=== PATIENT | male | born 1970 | race Caucasian/White ===

== ENCOUNTER 2016-07-07 05:23 | Emergency (ER) | payer MEDICAID ==
[~2016-07-07] VITALS: Ht 170.2 cm; Wt 82.2 kg
[~2016-07-07 05:23] MED LIST: ALBU18HF INH; LEVO750T26 PO
[2016-07-07] MEDS ORDERED: KETOROLAC 30 MG/1 ML IM ONE (06:00)
[2016-07-07] MEDS ORDERED: KETOROLAC 30 MG/1 ML ONE (06:05)
[2016-07-07 06:23] VITALS: BP 137/95
== END 2016-07-07 06:24 | disposition home or self-care (01) ==
LOC: ED 06:17
DX: M51.26 Other intervertebral disc displacement, lumbar region (principal); M51.16 Intervertebral disc disorders with radiculopathy, lumbar region; M54.31 Sciatica, right side; I10 Essential (primary) hypertension; J45.909 Unspecified asthma, uncomplicated
CPT/HCPCS: 96372; 99283; J1885

== ENCOUNTER 2016-12-01 11:21 | Emergency (ER) | payer MEDICAID ==
[2016-12-01 11:23] VITALS: BP 128/90
[2016-12-01] MEDS ORDERED: FLUORESCEIN OPHTHALMIC 1 MG STRIP ONE (12:05)
[2016-12-01] MEDS ORDERED: PROPARACAINE OPHTH 0.5%, 15ML ONE (12:05)
[2016-12-01] MEDS ORDERED: PROPARACAINE OPHTH 0.5%, 15ML EACHEYE ONE (12:30)
[2016-12-01] MEDS ORDERED: FLUORESCEIN OPHTHALMIC 1 MG STRIP EACHEYE ONE (12:30)
[2016-12-01] MEDS ORDERED: PLEASE ENTER WEIGHT MC SCH (12:30)
== END 2016-12-01 13:11 | disposition home or self-care (01) ==
LOC: ED 13:08
DX: B30.9 Viral conjunctivitis, unspecified (principal); J45.909 Unspecified asthma, uncomplicated; I10 Essential (primary) hypertension; F17.200 Nicotine dependence, unspecified, uncomplicated
CPT/HCPCS: 99283

== ENCOUNTER 2017-03-14 12:17 | Emergency (ER) | payer MEDICAID ==
[~2017-03-14] VITALS: Ht 167.6 cm; Wt 84.0 kg
[2017-03-14] MEDS ORDERED: ALBUTEROL/IPRATROPIUM 2.5MG/0.5MG, 3 ML ONE ×2 (12:54→12:56)
[2017-03-14] MEDS ORDERED: ALBUTEROL SULFATE 2.5 MG/3 ML ONE (12:56)
[2017-03-14] MEDS ORDERED: SODIUM CHLORIDE FLUSH 10ML SYR IVF ONE (13:00)
[2017-03-14] MEDS ORDERED: methylPREDNISolone SOD SUCC 125 MG/2 ML IVP ONE (13:00)
[2017-03-14] MEDS ORDERED: ALBUTEROL SULFATE 2.5 MG/3 ML NPPB ONE (13:00)
[2017-03-14 13:39] LABS: BASOPHILS # (AUTO) 0.09 x10^3/uL (0-0.1); BASOPHILS % (AUTO) 1 % (0-1); EOSINOPHILS # (AUTO) 0.29 x10^3/uL (0-0.4); EOSINOPHILS % (AUTO) 2 % (1-7); LYMPHOCYTES # (AUTO) 2.61 x10^3/uL (1-3.4); LYMPHOCYTES % (AUTO) 17 % (22-44); MD NO; MEAN CORPUSCULAR HEMOGLOBIN 31.2 pg (27.5-34.5); MEAN CORPUSCULAR HGB CONC 34.3 g/dL (33.2-36.2); MEAN PLATELET VOLUME 8.4 fL (7.4-10.4); MONOCYTES # (AUTO) 0.65 x10^3/uL (0.2-0.8); MONOCYTES % (AUTO) 4 % (2-9); NEUTROPHILS # (AUTO) 11.86 x10^3/uL (1.8-6.8); NEUTROPHILS % (AUTO) 77 % (42-75); PLATELET COUNT 243 x10^3/uL (130-400); RED BLOOD COUNT 5.02 x10^6/uL (4.38-5.82); RED CELL DISTRIBUTION WIDTH 13.6 % (9.4-14.8)
[2017-03-14] MEDS ORDERED: CEFTRIAXONE PMX 1GM/50ML 50 ML ONE (13:41)
[2017-03-14] MEDS ORDERED: methylPREDNISolone SOD SUCC 125 MG/2 ML ONE (13:41)
[2017-03-14] MEDS ORDERED: hydrALAzine 20 MG/ML, 1ML ONE (13:43)
[2017-03-14 13:49] LABS: ALBUMIN 3.3 g/dL (3.4-5.0); ANION GAP 6 mmol/L (5-15); CALCIUM 9.1 mg/dL (8.5-10.1); CHLORIDE 105 mmol/L (98-107); CREATININE 0.87 mg/dL (0.7-1.3)
[2017-03-14 13:52] LABS: TROPONIN I < 0.015 ng/mL (0.000-0.045)
[2017-03-14] MEDS ORDERED: hydrALAzine 20 MG/ML, 1ML IV ONE (14:00)
[2017-03-14] MEDS ORDERED: CEFTRIAXONE PMX 1GM/50ML 50 ML IV ONE (14:00)
[2017-03-14 14:19] VITALS: BP 128/104
== END 2017-03-14 14:59 | disposition home or self-care (01) ==
LOC: ED 14:38
DX: A41.9 Sepsis, unspecified organism (principal); J15.9 Unspecified bacterial pneumonia; I10 Essential (primary) hypertension; B19.20 Unspecified viral hepatitis C without hepatic coma; F17.200 Nicotine dependence, unspecified, uncomplicated; J45.909 Unspecified asthma, uncomplicated
CPT/HCPCS: 36415; 71045; 80048; 82040; 83605; 83880; 84145; 84484; 85025; 87040; 93005; 94640; 96365; 96375; 99285; J0360; J0696; J2930; J7613

== ENCOUNTER 2017-04-16 14:20 | Inpatient (IN) | payer MEDICAID ==
[~2017-04-16] VITALS: Ht 167.6 cm; Wt 85.9 kg
[2017-04-16] MEDS ORDERED: ASPIRIN 81 MG TABLET CHEW ONE (14:36)
[2017-04-16] MEDS ORDERED: BLOOD PRESSURE MED (14:59)
[2017-04-16] MEDS ORDERED: SODIUM CHLORIDE FLUSH 10ML SYR IVF ONE ×2 (15:00→15:30)
[2017-04-16] MEDS ORDERED: ASPIRIN 81 MG TABLET CHEW PO ONE (15:00)
[2017-04-16 15:15] LABS: MEAN CORPUSCULAR HEMOGLOBIN 30.6 pg (27.5-34.5); MEAN CORPUSCULAR HGB CONC 33.7 g/dL (33.2-36.2); MEAN CORPUSCULAR VOLUME 90.7 fL (81-97); MEAN PLATELET VOLUME 7.7 fL (7.4-10.4); PLATELET COUNT 303 x10^3/uL (130-400); RED BLOOD COUNT 5.48 x10^6/uL (4.38-5.82); RED CELL DISTRIBUTION WIDTH 13.5 % (9.4-14.8)
[2017-04-16] MEDS ORDERED: BENA20TA2 PO (15:17)
[2017-04-16] MEDS ORDERED: ALBU18HF INH (15:17)
[2017-04-16] MEDS ORDERED: AMLO5TAB2 PO (15:17)
[2017-04-16 15:23] LABS: CHLORIDE 103 mmol/L (98-107)
[2017-04-16] MEDS ORDERED: PIPERACILLIN/TAZO/PMX 3.375GM 50 ML IVPB ONE (15:30)
[2017-04-16] MEDS ORDERED: SODIUM CHLORIDE 0.9% 1,000ML IVBOLUS ONE ×2 (15:30→17:00)
[2017-04-16 15:32] LABS: ALBUMIN 3.7 g/dL (3.4-5.0); ANION GAP 6 mmol/L (5-15); CALCIUM 8.6 mg/dL (8.5-10.1); CREATININE 1.14 mg/dL (0.7-1.3); TROPONIN I < 0.015 ng/mL (0.000-0.045)
[2017-04-16] MEDS ORDERED: PIPERACILLIN/TAZO/PMX 3.375GM 50 ML ONE (16:13)
[2017-04-16] MEDS ORDERED: ACETAMINOPHEN 500 MG TABLET ONE (16:13)
[2017-04-16] MEDS ORDERED: ACETAMINOPHEN 500 MG TABLET PO ONE (16:30)
[2017-04-16 16:31] LABS: BASOPHILS # (AUTO) 0.06 x10^3/uL (0-0.1); BASOPHILS % (AUTO) 0 % (0-1); EOSINOPHILS # (AUTO) 0.14 x10^3/uL (0-0.4); EOSINOPHILS % (AUTO) 1 % (1-7); LYMPHOCYTES # (AUTO) 1.77 x10^3/uL (1-3.4); LYMPHOCYTES % (AUTO) 8 % (22-44); MD SCAN; MONOCYTES # (AUTO) 0.82 x10^3/uL (0.2-0.8); MONOCYTES % (AUTO) 4 % (2-9); NEUTROPHILS # (AUTO) 18.21 x10^3/uL (1.8-6.8); NEUTROPHILS % (AUTO) 87 % (42-75)
[2017-04-16] MEDS ORDERED: ONDANSETRON 2MG/ML, 2ML IVPush PRN (17:00)
[2017-04-16] MEDS ORDERED: ONDANSETRON ODT 4 MG PO PRN (17:00)
[2017-04-16] MEDS: PIPERACILLIN/TAZO/PMX 3.375GM 50 ML IV SCH ×2 (17:00→23:47)
[2017-04-16] MEDS ORDERED: ALBUTEROL SULFATE 2.5 MG/3 ML ONE (18:11)
[2017-04-16 18:38] VITALS: BP 108/71
[2017-04-16 19:01] VITALS: BP 105/63
[2017-04-16] MEDS ORDERED: OMNIPAQUE 350 MG/ML, 100ML BOTTLE ONE (20:35)
[2017-04-16] MEDS: HEPARIN 5,000 UNITS/ML, 1ML SQ SCH (21:07)
[2017-04-16] MEDS: NICOTINE 14MG/24 HR PATCH.TD24 TD SCH (21:07)
[2017-04-16] MEDS: KETOROLAC 30 MG/1 ML IVPush PRN (21:08)
[2017-04-16] MEDS: SODIUM CHLORIDE 0.9% 1,000 ML IV SCH (21:18)
[2017-04-16] MEDS: ALBUTEROL SULFATE 2.5 MG/3 ML NPPB PRN (21:45)
[2017-04-16 22:34] LABS: TROPONIN I < 0.015 ng/mL (0.000-0.045)
[2017-04-17 00:19] LABS: RAPID INFLUENZA A Negative (Negative); RAPID INFLUENZA B Negative (Negative)
[2017-04-17 02:19] VITALS: BP 107/66
[2017-04-17] MEDS: KETOROLAC 30 MG/1 ML IVPush PRN ×3 (03:21→15:33)
[2017-04-17] MEDS: SODIUM CHLORIDE 0.9% 1,000 ML IV SCH ×2 (04:33→15:29)
[2017-04-17] MEDS ORDERED: HYDROcodone/APAP 5/325 TABLET PO ONE (05:00)
[2017-04-17] MEDS: PIPERACILLIN/TAZO/PMX 3.375GM 50 ML IV SCH ×4 (05:07→23:12)
[2017-04-17] MEDS: HEPARIN 5,000 UNITS/ML, 1ML SQ SCH ×3 (05:08→21:19)
[2017-04-17 05:37] LABS: MEAN CORPUSCULAR HGB CONC 33.9 g/dL (33.2-36.2); MEAN CORPUSCULAR VOLUME 91.3 fL (81-97); MEAN PLATELET VOLUME 8.1 fL (7.4-10.4); PLATELET COUNT 221 x10^3/uL (130-400); RED BLOOD COUNT 4.36 x10^6/uL (4.38-5.82); RED CELL DISTRIBUTION WIDTH 14.1 % (9.4-14.8)
[2017-04-17 05:43] LABS: ALANINE AMINOTRANSFERASE 23 U/L (12-78); ALBUMIN 2.5 g/dL (3.4-5.0); ANION GAP 9 mmol/L (5-15); CALCIUM 7.4 mg/dL (8.5-10.1); CHLORIDE 109 mmol/L (98-107); CREATININE 1.13 mg/dL (0.7-1.3)
[2017-04-17 05:47] LABS: ALKALINE PHOSPHATASE 87 U/L (45-117); BILIRUBIN,TOTAL 0.5 mg/dL (0.2-1.0); TROPONIN I < 0.015 ng/mL (0.000-0.045)
[2017-04-17 05:53] LABS: THYROID STIMULATING HORMONE 0.418 mIU/L (0.358-3.740)
[2017-04-17 06:41] LABS: MD YES
[2017-04-17 06:44] LABS: BAND#(MANUAL) 1.74 x10^3/uL; BANDS%(MANUAL) 7 % (0-7); EOS#(MANUAL) 0.75 x10^3/uL (0.0-0.4); EOS% (MANUAL) 3 % (1-7); LYMPH#(MANUAL) 2.74 x10^3/uL (1-3.4); LYMPHS% (MANUAL) 11 % (22-44); MONOS% (MANUAL) 2 % (2-9); SEG#(MANUAL) 19.17 x10^3/uL (1.8-6.8); SEGS% (MANUAL) 77 % (42-75)
[2017-04-17 06:45] LABS: <RBC MORPHOLOGY> NORMAL
[2017-04-17 06:46] LABS: <PLATELET ESTIMATE> ADEQUATE; <PLT MORPHOLOGY> NORMAL PLT MORPH
[2017-04-17] MEDS ORDERED: VANCOMYCIN PER PHARMACY MC PRN (07:30)
[2017-04-17 07:42] VITALS: BP 110/74
[2017-04-17] MEDS ORDERED: VANCOMYCIN 1,700 MG in SODIUM CHLORIDE 0.9% 250 ML IV SCH (08:00)
[2017-04-17] MEDS ORDERED: PHARMACOKINETIC MONITORING MC PRN (08:00)
[2017-04-17] MEDS ORDERED: KETOROLAC 30 MG/1 ML ONE (09:01)
[2017-04-17 09:56] LABS: AMPHETAMINE SCREEN, URINE Positive (Negative); BARBITURATE SCREEN, URINE Negative (Negative); BENZODIAZEPINE SCREEN, URINE Negative (Negative); CANNABINOID SCREEN, URINE Negative (Negative); COCAINE SCREEN, URINE Negative (Negative); METHADONE SCREEN, URINE Negative (Negative); OPIATE SCREEN, URINE Negative (Negative)
[2017-04-17 10:10] LABS: MICROSCOPIC NOT IND
[2017-04-17 10:14] LABS: CULTURE INDICATED? NO
[2017-04-17 12:34] VITALS: BP 114/65
[2017-04-17] MEDS: NICOTINE 14MG/24 HR PATCH.TD24 TD SCH (16:55)
[2017-04-17 19:22] VITALS: BP 124/81
[2017-04-17] MEDS: ALBUTEROL SULFATE 2.5 MG/3 ML NPPB PRN (19:54)
[2017-04-17] MEDS: VANCOMYCIN 1,300 MG in SODIUM CHLORIDE 0.9% 250 ML IV SCH (21:19)
[2017-04-18] MEDS: SODIUM CHLORIDE 0.9% 1,000 ML IV SCH ×2 (00:56→07:56)
[2017-04-18] MEDS: KETOROLAC 30 MG/1 ML IVPush PRN ×3 (01:17→19:57)
[2017-04-18 04:13] VITALS: BP 120/80
[2017-04-18] MEDS: PIPERACILLIN/TAZO/PMX 3.375GM 50 ML IV SCH (05:47)
[2017-04-18] MEDS: HEPARIN 5,000 UNITS/ML, 1ML SQ SCH ×3 (05:47→19:57)
[2017-04-18 07:27] LABS: BASOPHILS # (AUTO) 0.07 x10^3/uL (0-0.1); BASOPHILS % (AUTO) 1 % (0-1); EOSINOPHILS # (AUTO) 0.33 x10^3/uL (0-0.4); EOSINOPHILS % (AUTO) 2 % (1-7); LYMPHOCYTES # (AUTO) 2.24 x10^3/uL (1-3.4); LYMPHOCYTES % (AUTO) 16 % (22-44); MD NO; MEAN CORPUSCULAR HEMOGLOBIN 30.6 pg (27.5-34.5); MEAN CORPUSCULAR HGB CONC 33.1 g/dL (33.2-36.2); MEAN CORPUSCULAR VOLUME 92.5 fL (81-97); MEAN PLATELET VOLUME 7.7 fL (7.4-10.4); MONOCYTES # (AUTO) 0.77 x10^3/uL (0.2-0.8); MONOCYTES % (AUTO) 6 % (2-9); NEUTROPHILS # (AUTO) 10.45 x10^3/uL (1.8-6.8); NEUTROPHILS % (AUTO) 75 % (42-75); PLATELET COUNT 250 x10^3/uL (130-400); RED BLOOD COUNT 4.27 x10^6/uL (4.38-5.82); RED CELL DISTRIBUTION WIDTH 14.3 % (9.4-14.8)
[2017-04-18 07:33] LABS: ALBUMIN 2.3 g/dL (3.4-5.0); ANION GAP 6 mmol/L (5-15); CALCIUM 7.4 mg/dL (8.5-10.1); CHLORIDE 113 mmol/L (98-107)
[2017-04-18 07:36] LABS: ALANINE AMINOTRANSFERASE 23 U/L (12-78); ALKALINE PHOSPHATASE 78 U/L (45-117); BILIRUBIN,TOTAL 0.3 mg/dL (0.2-1.0); CREATININE 0.77 mg/dL (0.7-1.3); TOTAL PROTEIN 6.5 g/dL (6.4-8.2)
[2017-04-18] MEDS: VANCOMYCIN 1,300 MG in SODIUM CHLORIDE 0.9% 250 ML IV SCH (07:56)
[2017-04-18 08:27] VITALS: BP 158/95
[2017-04-18] MEDS: CEFTRIAXONE PMX 2GM/50ML 50 ML IV SCH (10:42)
[2017-04-18 12:56] VITALS: BP 156/103
[2017-04-18] MEDS ORDERED: ELBA1TAB PO (13:14)
[2017-04-18 19:05] VITALS: BP 155/96
[2017-04-18] MEDS: NICOTINE 14MG/24 HR PATCH.TD24 TD SCH (19:57)
[2017-04-19 02:23] VITALS: BP 152/94
[2017-04-19] MEDS: KETOROLAC 30 MG/1 ML IVPush PRN ×2 (02:48→10:14)
[2017-04-19 06:01] LABS: BASOPHILS # (AUTO) 0.11 x10^3/uL (0-0.1); BASOPHILS % (AUTO) 1 % (0-1); EOSINOPHILS # (AUTO) 0.27 x10^3/uL (0-0.4); EOSINOPHILS % (AUTO) 2 % (1-7); LYMPHOCYTES % (AUTO) 16 % (22-44); MD NO; MEAN CORPUSCULAR HEMOGLOBIN 30.9 pg (27.5-34.5); MEAN CORPUSCULAR HGB CONC 33.9 g/dL (33.2-36.2); MEAN CORPUSCULAR VOLUME 91.1 fL (81-97); MEAN PLATELET VOLUME 7.8 fL (7.4-10.4); MONOCYTES # (AUTO) 0.72 x10^3/uL (0.2-0.8); MONOCYTES % (AUTO) 5 % (2-9); NEUTROPHILS # (AUTO) 11.37 x10^3/uL (1.8-6.8); NEUTROPHILS % (AUTO) 77 % (42-75); PLATELET COUNT 288 x10^3/uL (130-400); RED BLOOD COUNT 4.39 x10^6/uL (4.38-5.82)
[2017-04-19] MEDS: HEPARIN 5,000 UNITS/ML, 1ML SQ SCH ×2 (06:02→12:18)
[2017-04-19 06:04] LABS: ANION GAP 8 mmol/L (5-15); CALCIUM 8.1 mg/dL (8.5-10.1); CHLORIDE 109 mmol/L (98-107)
[2017-04-19] MEDS ORDERED: GRAZOPREVIR PO SCH (07:00)
[2017-04-19] MEDS ORDERED: ZEPATIER HOMEMEDPO SCH (07:00)
[2017-04-19] MEDS ORDERED: ELBASVIR PO SCH (07:00)
[2017-04-19 09:08] VITALS: BP 149/96
[2017-04-19] MEDS: CEFTRIAXONE PMX 2GM/50ML 50 ML IV SCH (10:08)
[2017-04-19 14:55] VITALS: BP 145/95
[2017-04-19] MEDS ORDERED: CEFTRIAXONE 2,000 MG in SODIUM CHLORIDE 0.9% 50 ML IV SCH (22:30)
[2017-04-19] MEDS ORDERED: CEFTRIAXONE PMX 2GM/50ML 50 ML IV SCH (22:30)
[2017-04-20] MEDS ORDERED: BENAZEPRIL 20 MG TABLET PO SCH (09:00)
[2017-04-20] MEDS ORDERED: AMLODIPINE 5 MG TABLET PO SCH (09:00)
== END 2017-04-19 21:03 | disposition left against medical advice (07) | DRG 871 ==
LOC: ED 16:13 → EDIP 16:34 → 5SO 17:27
PROVIDERS: ADMIT Hospitalist; ATTEND Hospitalist
DX: A41.9 Sepsis, unspecified organism (principal); J18.1 Lobar pneumonia, unspecified organism; E44.0 Moderate protein-calorie malnutrition; E87.1 Hypo-osmolality and hyponatremia; B19.20 Unspecified viral hepatitis C without hepatic coma; B95.3 Streptococcus pneumoniae as the cause of diseases classified elsewhere; F12.90 Cannabis use, unspecified, uncomplicated; Z53.21 Procedure and treatment not carried out due to patient leaving prior to being seen by health care provider; F17.210 Nicotine dependence, cigarettes, uncomplicated; I10 Essential (primary) hypertension; J45.909 Unspecified asthma, uncomplicated; Z79.82 Long term (current) use of aspirin; Z80.0 Family history of malignant neoplasm of digestive organs; Z88.8 Allergy status to other drugs, medicaments and biological substances; Z68.30 Body mass index [BMI] 30.0-30.9, adult
CPT/HCPCS: 36415; 71045; 71260; 80048; 80053; 80307; 81003; 82040; 83605; 84145; 84443; 84484; 85025; 85379; 86703; 87040; 87077; 87181; 87400; 87899; 93005; 93306; 96361; 96365; J0696; J1644; J1885; J2543; J3370; J7613; Q9967; G0435; J7030; J7050

== ENCOUNTER 2018-01-16 13:17 | Emergency (ER) | payer OTHER, MEDICAID ==
[~2018-01-16] VITALS: Ht 167.6 cm; Wt 83.6 kg
[~2018-01-16 13:17] MED LIST changes: +AMLO5TAB7 PO; +BENA20TA4 PO; +BLOOD PRESSURE MED; +ELBA1TAB PO
[2018-01-16 13:42] VITALS: BP 138/87
[2018-01-16] MEDS ORDERED: NAPROXEN 500 MG TABLET PO ONE (15:00)
[2018-01-16] MEDS ORDERED: NAPROXEN 500 MG TABLET ONE (15:10)
== END 2018-01-16 15:25 | disposition home or self-care (01) ==
LOC: ED 14:00
DX: S40.011A Contusion of right shoulder, initial encounter (principal); S70.01XA Contusion of right hip, initial encounter; I10 Essential (primary) hypertension; V23.0XXA Motorcycle driver injured in collision with car, pick-up truck or van in nontraffic accident, initial encounter; Y93.89 Activity, other specified; Y92.89 Other specified places as the place of occurrence of the external cause; Y99.8 Other external cause status
CPT/HCPCS: 99284

== ENCOUNTER 2018-04-03 03:12 | Observation (INO) | payer MEDICAID ==
[~2018-04-03] VITALS: Ht 167.6 cm; Wt 87.8 kg
[~2018-04-03 03:12] MED LIST changes: +AMLO-150 PO; -AMLO5TAB7 PO; -BENA20TA4 PO; +BENA20TA54 PO
--- NOTE | 2018-04-03 03:30 | NUR ---
ABD PAIN ALL NIGHT, BM TONIGHT.
[2018-04-03] MEDS ORDERED: KETOROLAC 30 MG/1 ML ONE (03:38)
[2018-04-03] MEDS ORDERED: ONDANSETRON 2MG/ML, 2ML ONE ×3 (03:38→11:04)
[2018-04-03] MEDS ORDERED: KETOROLAC 30 MG/1 ML IVPush ONE (04:00)
[2018-04-03] MEDS ORDERED: ONDANSETRON 2MG/ML, 2ML IVPush ONE (04:00)
[2018-04-03 04:04] LABS: MICROSCOPIC NOT IND
[2018-04-03 04:04] LABS: BASOPHILS # (AUTO) 0.09 x10^3/uL (0-0.1); BASOPHILS % (AUTO) 1 % (0-1); EOSINOPHILS # (AUTO) 0.32 x10^3/uL (0-0.4); EOSINOPHILS % (AUTO) 3 % (1-7); LYMPHOCYTES # (AUTO) 3.17 x10^3/uL (1-3.4); LYMPHOCYTES % (AUTO) 32 % (22-44); MD NO; MEAN CORPUSCULAR HEMOGLOBIN 31.3 pg (27.5-34.5); MEAN CORPUSCULAR HGB CONC 34.4 g/dL (33.2-36.2); MEAN CORPUSCULAR VOLUME 91.1 fL (81-97); MONOCYTES % (AUTO) 8 % (2-9); NEUTROPHILS # (AUTO) 5.41 x10^3/uL (1.8-6.8); NEUTROPHILS % (AUTO) 55 % (42-75); PLATELET COUNT 296 x10^3/uL (130-400); RED BLOOD COUNT 5.29 x10^6/uL (4.38-5.82); RED CELL DISTRIBUTION WIDTH 14.1 % (9.4-14.8)
[2018-04-03 04:11] LABS: ALANINE AMINOTRANSFERASE 28 U/L (12-78); ALBUMIN 3.1 g/dL (3.4-5.0); ANION GAP 5 mmol/L (5-15); CALCIUM 8.6 mg/dL (8.5-10.1); CHLORIDE 109 mmol/L (98-107); CREATININE 0.89 mg/dL (0.7-1.3)
[2018-04-03 04:13] LABS: ALKALINE PHOSPHATASE 109 U/L (45-117); BILIRUBIN,TOTAL 0.3 mg/dL (0.2-1.0); TOTAL PROTEIN 8.1 g/dL (6.4-8.2)
[2018-04-03 04:25] LABS: CULTURE INDICATED? NO
--- NOTE | 2018-04-03 04:30 | NUR ---
pt resting in bed in nad
--- NOTE | 2018-04-03 05:28 | NUR ---
pt resting in nad, awaiting admit
[2018-04-03] MEDS ORDERED: CEFOTETAN PMX 1GM/50ML 50 ML IV ONE (05:30)
[2018-04-03] MEDS ORDERED: ONDANSETRON 2MG/ML, 2ML IVPush PRN ×3 (05:30→12:00)
[2018-04-03] MEDS ORDERED: CEFOTETAN PMX 1GM/50ML 50 ML ONE (05:31)
--- NOTE | 2018-04-03 06:12 | NUR ---
REPORT TO MISAEL PT TO FLOOR WITH TECH
[2018-04-03] MEDS ORDERED: MORPHINE SULFATE 4 MG/ML, 1ML IVPush PRN ×2 (08:30→11:00)
[2018-04-03] MEDS: D5%-0.45NACL+KCL 20MEQ 1,000 ML IV SCH ×2 (08:30→15:34)
[2018-04-03] MEDS ORDERED: BUPIVACAINE/PF-EPI 0.5% 1:200K ONE (09:56)
[2018-04-03] MEDS ORDERED: MIDAZOLAM 1 MG/ML, 2ML ONE (10:34)
[2018-04-03] MEDS ORDERED: FENTANYL PF 250 MCG/5ML ONE (10:35)
[2018-04-03] MEDS ORDERED: NEOSTIGMINE 1 MG/ML, 10ML ONE (10:37)
[2018-04-03] MEDS ORDERED: GLYCOPYRROLATE 0.2MG/1ML, 5ML ONE (10:37)
[2018-04-03] MEDS ORDERED: EPHEDRINE 50 MG/ML, 1ML IVPush PRN (11:00)
[2018-04-03] MEDS ORDERED: PROMETHAZINE 25 MG/ML, 1ML IV PRN (11:00)
[2018-04-03] MEDS ORDERED: ONDANSETRON ODT 8 MG PO PRN (11:00)
[2018-04-03] MEDS ORDERED: DIAZEPAM 5 MG/ML, 2ML IVPush PRN (11:00)
[2018-04-03] MEDS ORDERED: MIDAZOLAM 1 MG/ML, 2ML IV PRN (11:00)
[2018-04-03] MEDS ORDERED: LABETALOL 5MG/ML, 20ML IV PRN ×2 (11:00→12:30)
[2018-04-03] MEDS ORDERED: MEPERIDINE/PF 25MG/0.5ML IVPush PRN (11:00)
[2018-04-03] MEDS ORDERED: PROMETHAZINE 12.5 MG SUPP PR PRN (11:00)
[2018-04-03] MEDS ORDERED: HYDROmorphone 2 MG/ML, 1ML IVPush PRN (11:00)
[2018-04-03] MEDS ORDERED: hydrALAzine 20 MG/ML, 1ML IV PRN (11:00)
[2018-04-03] MEDS ORDERED: ALBUTEROL SULFATE 2.5 MG/3 ML NPPB PRN (11:00)
[2018-04-03] MEDS ORDERED: ONDANSETRON 2MG/ML, 2ML IV PRN (11:00)
[2018-04-03] MEDS ORDERED: FENTANYL PF 100 MCG/2ML IV PRN (11:00)
[2018-04-03] MEDS ORDERED: PROPOFOL 10 MG/ML, 20ML ONE (11:04)
[2018-04-03] MEDS ORDERED: ROCURONIUM 10MG/ML,5ML ONE (11:04)
[2018-04-03] MEDS ORDERED: DEXAMETHASONE 4 MG/ML, 1ML ONE ×2 (11:04)
[2018-04-03] MEDS ORDERED: PHENYLEPHRINE 10 MG/ML ONE (11:04)
[2018-04-03] MEDS ORDERED: SUCCINYLCHOLINE 20 MG/ML, 10ML ONE (11:04)
[2018-04-03] MEDS ORDERED: ALBUTEROL HFA 90 MCG/SPRAY ONE (11:29)
[2018-04-03] MEDS ORDERED: KETOROLAC 30 MG/1 ML IVPush PRN (12:00)
[2018-04-03] MEDS ORDERED: morphine SULFATE 10 MG/ML, 1ML IVPush PRN (12:00)
[2018-04-03] MEDS ORDERED: HYDROcodone/APAP 7.5-325MG/15ML UDC ONE (12:05)
[2018-04-03] MEDS: HYDROcodone/APAP 7.5-325MG/15ML UDC PO PRN ×2 (12:05→15:35)
[2018-04-03 13:30] VITALS: BP 134/82
[2018-04-03] MEDS ORDERED: HYDR-3240 PO (15:18)
[2018-04-03] MEDS ORDERED: ONDA4TAB7 PO (15:19)
== END 2018-04-03 16:48 | disposition home or self-care (01) ==
LOC: ED 04:01 → INTOOBSV 05:23 → EDIP 05:23 → 4NOR 06:22 → DCLOUNGE 16:36
PROVIDERS: ADMIT Internal Medicine; ATTEND Internal Medicine
DX: K80.00 Calculus of gallbladder with acute cholecystitis without obstruction (principal); I10 Essential (primary) hypertension; J45.909 Unspecified asthma, uncomplicated; K66.0 Peritoneal adhesions (postprocedural) (postinfection); Z72.0 Tobacco use
CPT/HCPCS: 36415; 47562; 76700; 80053; 81003; 83690; 85025; 88304; 96365; 96375; 96376; 99284; G0378; J0330; J1100; J1885; J2250; J2370; J2405; J2704; J2710; J3010; J3480; J3490

== ENCOUNTER 2018-04-08 23:50 | Emergency (ER) | payer MEDICAID ==
[~2018-04-08] VITALS: Ht 167.6 cm; Wt 88.5 kg
[~2018-04-08 23:50] MED LIST changes: +HYDR-3240 PO; +ONDA4TAB7 PO
--- NOTE | 2018-04-08 23:57 | NUR ---
Pt ambulated to room.
--- NOTE | 2018-04-09 00:06 | NUR ---
Pt resting on emi states that he has been having right shoulder pain, going across his chest, and shortness of breath since the morning after his mayra, appx. 21, pt unsure of exact date of surgery.
--- NOTE | 2018-04-09 00:08 | NUR ---
Dr. Cortés at bedside to evaluate pt.
--- NOTE | 2018-04-09 00:29 | NUR ---
XR complete. Lab at bedside.
[2018-04-09 00:38] LABS: BASOPHILS # (AUTO) 0.05 x10^3/uL (0-0.1); BASOPHILS % (AUTO) 0 % (0-1); EOSINOPHILS # (AUTO) 0.37 x10^3/uL (0-0.4); EOSINOPHILS % (AUTO) 3 % (1-7); LYMPHOCYTES # (AUTO) 2.72 x10^3/uL (1-3.4); LYMPHOCYTES % (AUTO) 20 % (22-44); MD NO; MEAN CORPUSCULAR HEMOGLOBIN 30.7 pg (27.5-34.5); MEAN CORPUSCULAR HGB CONC 33.6 g/dL (33.2-36.2); MEAN CORPUSCULAR VOLUME 91.3 fL (81-97); MEAN PLATELET VOLUME 7.6 fL (7.4-10.4); MONOCYTES # (AUTO) 0.85 x10^3/uL (0.2-0.8); MONOCYTES % (AUTO) 6 % (2-9); NEUTROPHILS # (AUTO) 9.43 x10^3/uL (1.8-6.8); NEUTROPHILS % (AUTO) 70 % (42-75); PLATELET COUNT 301 x10^3/uL (130-400); RED BLOOD COUNT 5.38 x10^6/uL (4.38-5.82); RED CELL DISTRIBUTION WIDTH 13.6 % (9.4-14.8)
[2018-04-09 00:51] LABS: ALANINE AMINOTRANSFERASE 33 U/L (12-78); ANION GAP 8 mmol/L (5-15); CALCIUM 8.6 mg/dL (8.5-10.1); CHLORIDE 109 mmol/L (98-107); CREATININE 0.98 mg/dL (0.7-1.3)
[2018-04-09 00:55] LABS: ALKALINE PHOSPHATASE 104 U/L (45-117); BILIRUBIN,TOTAL 0.3 mg/dL (0.2-1.0); TOTAL PROTEIN 8.5 g/dL (6.4-8.2); TROPONIN I < 0.015 ng/mL (0.000-0.045)
--- NOTE | 2018-04-09 01:19 | NUR ---
RN at bedside for US IV.
--- NOTE | 2018-04-09 01:41 | NUR ---
Pt to imaging, with tech, via [facility].
--- NOTE | 2018-04-09 01:57 | NUR ---
Pt back to room from imaging.
--- NOTE | 2018-04-09 02:15 | NUR ---
Dr. Cortés at bedside to discuss ED findings and POC.
[2018-04-09] MEDS ORDERED: ALBUTEROL/IPRATROPIUM 2.5MG/0.5MG, 3 ML NPPB ONE (02:30)
[2018-04-09] MEDS ORDERED: ALBUTEROL SULFATE 2.5 MG/3 ML ONE (02:34)
--- NOTE | 2018-04-09 02:37 | NUR ---
RECEIVED BS REPORT FROM KONRAD BROWNE TO ASSUME PT. CARE. PT. TO BR ACROSS GENTILE WITH STEADY GAIT. RT AT BS FOR BREATHING TX WHEN PT. LEAVES BR. WILL ADMIN PREDNISONE AND PT. TO D/C. PT. AWARE OF POC.
[2018-04-09 02:51] VITALS: BP 131/87
[2018-04-09] MEDS ORDERED: OMNIPAQUE 350 MG/ML, 100ML BOTTLE ONE (04:17)
== END 2018-04-09 02:53 | disposition home or self-care (01) ==
LOC: ED 04-09 01:19
DX: R09.1 Pleurisy (principal); J45.41 Moderate persistent asthma with (acute) exacerbation; I10 Essential (primary) hypertension; F17.200 Nicotine dependence, unspecified, uncomplicated; Z90.49 Acquired absence of other specified parts of digestive tract; Z88.5 Allergy status to narcotic agent
CPT/HCPCS: 36415; 71045; 71275; 80053; 83690; 84484; 85025; 85379; 93005; 94640; 99284; J7512; J7620; Q9967

== ENCOUNTER 2018-08-20 07:47 | Outpatient (CLI) | payer MEDICAID | END 2018-08-20 23:59 | disposition home or self-care (01) | LOC: RAD 07:47 | PROVIDERS: ATTEND Family Medicine | DX: M19.042 Primary osteoarthritis, left hand (principal) ==

== ENCOUNTER 2019-01-18 01:08 | Emergency (ER) | payer MEDICAID ==
[~2019-01-18] VITALS: Ht 167.6 cm; Wt 86.8 kg
[2019-01-18] MEDS ORDERED: SODIUM CHLORIDE 0.9% 1,000ML IVBOLUS ONE (01:30)
[2019-01-18] MEDS ORDERED: ACETAMINOPHEN 500 MG TABLET PO ONE (01:30)
[2019-01-18] MEDS ORDERED: ACETAMINOPHEN 500 MG TABLET ONE (01:34)
[2019-01-18 02:04] LABS: ALBUMIN 3.3 g/dL (3.4-5.0); ANION GAP 5 mmol/L (5-15); CALCIUM 8.8 mg/dL (8.5-10.1); CHLORIDE 103 mmol/L (98-107); CREATININE 1.16 mg/dL (0.7-1.3)
[2019-01-18 02:08] LABS: TROPONIN I < 0.015 ng/mL (0.000-0.045)
[2019-01-18 02:11] LABS: RAPID INFLUENZA A Negative (Negative); RAPID INFLUENZA B Negative (Negative)
[2019-01-18 02:55] LABS: BASOPHILS # (AUTO) 0.02 x10^3/uL (0-0.1); BASOPHILS % (AUTO) 0 % (0-1); EOSINOPHILS # (AUTO) 0.11 x10^3/uL (0-0.4); EOSINOPHILS % (AUTO) 1 % (1-7); LYMPHOCYTES # (AUTO) 1.41 x10^3/uL (1-3.4); LYMPHOCYTES % (AUTO) 10 % (22-44); MD NO; MEAN CORPUSCULAR HEMOGLOBIN 30.8 pg (27.5-34.5); MEAN CORPUSCULAR HGB CONC 33.2 g/dL (33.2-36.2); MEAN CORPUSCULAR VOLUME 92.8 fL (81-97); MEAN PLATELET VOLUME 7.6 fL (7.4-10.4); MONOCYTES # (AUTO) 0.83 x10^3/uL (0.2-0.8); MONOCYTES % (AUTO) 6 % (2-9); NEUTROPHILS # (AUTO) 11.64 x10^3/uL (1.8-6.8); NEUTROPHILS % (AUTO) 83 % (42-75); PLATELET COUNT 236 x10^3/uL (130-400); RED BLOOD COUNT 4.99 x10^6/uL (4.38-5.82); RED CELL DISTRIBUTION WIDTH 14.3 % (9.4-14.8)
[2019-01-18] MEDS ORDERED: ONDANSETRON 2MG/ML, 2ML ONE (03:16)
[2019-01-18] MEDS ORDERED: MORPHINE SULFATE 4 MG/ML, 1ML ONE (03:17)
[2019-01-18] MEDS ORDERED: MORPHINE SULFATE 4 MG/ML, 1ML IVPush PRN (03:30)
[2019-01-18] MEDS ORDERED: ONDANSETRON 2MG/ML, 2ML IVPush ONE (03:30)
[2019-01-18] MEDS ORDERED: DOXYCYCLINE 100MG TABLET PO ONE (04:30)
[2019-01-18] MEDS ORDERED: DOXYCYCLINE 100MG TABLET ONE (04:33)
[2019-01-18 04:47] VITALS: BP 113/60
[2019-01-18] MEDS ORDERED: OMNIPAQUE 350 MG/ML, 100ML BOTTLE ONE (05:47)
== END 2019-01-18 04:50 | disposition home or self-care (01) ==
LOC: ED 01:32
DX: J18.1 Lobar pneumonia, unspecified organism (principal); I10 Essential (primary) hypertension; J45.909 Unspecified asthma, uncomplicated; F17.200 Nicotine dependence, unspecified, uncomplicated; Z87.01 Personal history of pneumonia (recurrent); Z90.49 Acquired absence of other specified parts of digestive tract
CPT/HCPCS: 36415; 71045; 71275; 74174; 80048; 82040; 83605; 84484; 85025; 87400; 93005; 96374; 96375; 99284; J2270; J2405; J7030; Q9967

== ENCOUNTER 2019-03-29 17:14 | Observation (INO) | payer MEDICAID ==
[~2019-03-29] VITALS: Ht 167.6 cm; Wt 89.5 kg
[2019-03-29] MEDS ORDERED: SODIUM CHLORIDE FLUSH 10ML SYR IVF ONE (18:00)
[2019-03-29] MEDS ORDERED: ACETAMINOPHEN 325 MG TABLET PO ONE (18:00)
[2019-03-29] MEDS ORDERED: KETOROLAC 30 MG/1 ML IVPush ONE (18:00)
[2019-03-29] MEDS ORDERED: SODIUM CHLORIDE 0.9% 1,000ML IVBOLUS ONE ×2 (18:00→19:00)
--- NOTE | 2019-03-29 18:00 | NUR ---
PT PRESENTING TO ER FOR COUGH, JOSEPH, BODY PAIN AND FEVER X3 WKS. CONNECTED TO MONITORING, TACHY HR, RAPID RESP RATE, SATS 92% ON RA. PRODUCTIVE COUGH, WHITE SECRETIONS. FAMILY AT BEDSIDE. CALL LIGHT WITHIN REACH
--- NOTE | 2019-03-29 18:09 | NUR ---
IV PLACED, FLUIDS RUNNING, LABS AND CULTURES COLLECTED. RAD COMPLETED
[2019-03-29] MEDS ORDERED: KETOROLAC 30 MG/1 ML ONE (18:10)
[2019-03-29] MEDS ORDERED: ACETAMINOPHEN 500 MG TABLET ONE (18:10)
[2019-03-29 18:26] LABS: MEAN CORPUSCULAR HGB CONC 33.4 g/dL (33.2-36.2); MEAN CORPUSCULAR VOLUME 89.7 fL (81-97); PLATELET COUNT 285 x10^3/uL (130-400); RED BLOOD COUNT 5.18 x10^6/uL (4.38-5.82); RED CELL DISTRIBUTION WIDTH 14.3 % (9.4-14.8)
[2019-03-29 18:32] LABS: RAPID INFLUENZA A Negative (Negative); RAPID INFLUENZA B Negative (Negative)
[2019-03-29 18:36] LABS: ALANINE AMINOTRANSFERASE 27 U/L (12-78); ALBUMIN 3.2 g/dL (3.4-5.0); ANION GAP 7 mmol/L (5-15); CALCIUM 8.3 mg/dL (8.5-10.1); CHLORIDE 106 mmol/L (98-107); CREATININE 1.02 mg/dL (0.7-1.3)
[2019-03-29 18:47] LABS: BASOPHILS # (AUTO) 0.03 x10^3/uL (0-0.1); BASOPHILS % (AUTO) 0 % (0-1); EOSINOPHILS # (AUTO) 0.12 x10^3/uL (0-0.4); EOSINOPHILS % (AUTO) 1 % (1-7); LYMPHOCYTES # (AUTO) 1.53 x10^3/uL (1-3.4); LYMPHOCYTES % (AUTO) 7 % (22-44); MD SCAN; MONOCYTES # (AUTO) 1.21 x10^3/uL (0.2-0.8); MONOCYTES % (AUTO) 5 % (2-9); NEUTROPHILS # (AUTO) 19.56 x10^3/uL (1.8-6.8); NEUTROPHILS % (AUTO) 87 % (42-75)
--- NOTE | 2019-03-29 18:47 | NUR ---
AT BEDSIDE FOR RECHECK
[2019-03-29 18:51] LABS: ALKALINE PHOSPHATASE 120 U/L (45-117); BILIRUBIN,TOTAL 0.5 mg/dL (0.2-1.0); TOTAL PROTEIN 8.7 g/dL (6.4-8.2)
[2019-03-29] MEDS ORDERED: CEFTRIAXONE PMX 1GM/50ML 50 ML ONE (18:58)
[2019-03-29] MEDS ORDERED: CEFTRIAXONE PMX 1GM/50ML 50 ML IV ONE (19:00)
[2019-03-29] MEDS ORDERED: ALBUTEROL/IPRATROPIUM 2.5MG/0.5MG, 3 ML NPPB ONE (19:00)
[2019-03-29] MEDS ORDERED: AZITHROMYCIN 500 MG in SODIUM CHLORIDE 0.9% 250 ML IV ONE (19:00)
[2019-03-29] MEDS ORDERED: QUET25TA7 PO (19:19)
[2019-03-29] MEDS ORDERED: AMLO-150 PO (19:20)
[2019-03-29] MEDS ORDERED: BENA20TA54 PO (19:20)
--- NOTE | 2019-03-29 19:26 | NUR ---
ABX RUNNING, BLOOD CULTURES DRAWN PRIOR TO ADMIN. SECOND BOLUS RUNNING, HR DECREASING. TEMP ALSO DECREASING AFTER FLUIDS AND MEDS. AWAITING ADMIT ORDER AT THIS TIME. CALL LIGHT WITHIN REACH.
[2019-03-29] MEDS ORDERED: ALBUTEROL/IPRATROPIUM 2.5MG/0.5MG, 3 ML ONE (19:39)
--- NOTE | 2019-03-29 19:49 | NUR ---
HOSPITALIST AT BEDSIDE FOR ADMIT ASSESSMENT
--- NOTE | 2019-03-29 19:53 | NUR ---
RT AT BEDSIDE FOR TREATMENT
--- NOTE | 2019-03-29 19:59 | NUR ---
REPORT GIVEN TO ANDREAS RN, PT READY FOR TRANSPORT
[2019-03-29 20:22] VITALS: BP 111/62
[2019-03-29] MEDS ORDERED: ONDANSETRON 2MG/ML, 2ML IVPush PRN (20:30)
[2019-03-29] MEDS ORDERED: ACETAMINOPHEN 325 MG TABLET PO PRN (20:30)
[2019-03-29] MEDS ORDERED: ALBUTEROL/IPRATROPIUM 2.5MG/0.5MG, 3 ML NPPB PRN (20:30)
[2019-03-29] MEDS: SODIUM CHLORIDE 0.9% 1,000 ML IV SCH (21:04)
[2019-03-29] MEDS: QUETIAPINE 25MG TABLET PO SCH (21:57)
[2019-03-30 00:10] VITALS: BP 121/79
[2019-03-30] MEDS: SODIUM CHLORIDE 0.9% 1,000 ML IV SCH ×3 (05:34→23:04)
[2019-03-30 06:07] LABS: ANION GAP 4 mmol/L (5-15); CALCIUM 7.9 mg/dL (8.5-10.1); CHLORIDE 109 mmol/L (98-107)
[2019-03-30 06:09] LABS: CREATININE 1.02 mg/dL (0.7-1.3)
[2019-03-30 06:11] LABS: BASOPHILS # (AUTO) 0.04 x10^3/uL (0-0.1); BASOPHILS % (AUTO) 0 % (0-1); EOSINOPHILS % (AUTO) 1 % (1-7); LYMPHOCYTES # (AUTO) 2.41 x10^3/uL (1-3.4); LYMPHOCYTES % (AUTO) 15 % (22-44); MD NO; MEAN CORPUSCULAR HEMOGLOBIN 30.7 pg (27.5-34.5); MEAN CORPUSCULAR HGB CONC 33.3 g/dL (33.2-36.2); MEAN CORPUSCULAR VOLUME 92.2 fL (81-97); MEAN PLATELET VOLUME 7.7 fL (7.4-10.4); MONOCYTES # (AUTO) 1.06 x10^3/uL (0.2-0.8); MONOCYTES % (AUTO) 6 % (2-9); NEUTROPHILS # (AUTO) 12.87 x10^3/uL (1.8-6.8); NEUTROPHILS % (AUTO) 78 % (42-75); PLATELET COUNT 239 x10^3/uL (130-400); RED BLOOD COUNT 4.78 x10^6/uL (4.38-5.82); RED CELL DISTRIBUTION WIDTH 14.4 % (9.4-14.8)
[2019-03-30 07:29] VITALS: BP 134/86
[2019-03-30] MEDS: LISINOPRIL 20 MG TABLET PO SCH (08:58)
[2019-03-30] MEDS: AMLODIPINE 5 MG TABLET PO SCH (08:58)
[2019-03-30] MEDS ORDERED: QUETIAPINE 25MG TABLET PO SCH (09:00)
[2019-03-30 12:18] VITALS: BP 124/77
[2019-03-30] MEDS ORDERED: ZOLPIDEM 5MG TABLET PO PRN (19:30)
[2019-03-30] MEDS ORDERED: AZITHROMYCIN 500 MG in SODIUM CHLORIDE 0.9% 250 ML IV SCH (20:00)
[2019-03-30 20:06] VITALS: BP 133/85
[2019-03-30] MEDS: QUETIAPINE 25MG TABLET PO SCH (20:13)
[2019-03-30] MEDS ORDERED: CEFTRIAXONE PMX 1GM/50ML 50 ML IV SCH (21:00)
[2019-03-31 01:26] VITALS: BP 117/73
[2019-03-31] MEDS: SODIUM CHLORIDE 0.9% 1,000 ML IV SCH (04:46)
[2019-03-31 06:10] LABS: CHLORIDE 112 mmol/L (98-107)
[2019-03-31 06:18] LABS: BASOPHILS # (AUTO) 0.04 x10^3/uL (0-0.1); BASOPHILS % (AUTO) 0 % (0-1); EOSINOPHILS # (AUTO) 0.44 x10^3/uL (0-0.4); EOSINOPHILS % (AUTO) 3 % (1-7); LYMPHOCYTES # (AUTO) 2.08 x10^3/uL (1-3.4); LYMPHOCYTES % (AUTO) 16 % (22-44); MD NO; MEAN CORPUSCULAR HEMOGLOBIN 30.2 pg (27.5-34.5); MEAN CORPUSCULAR HGB CONC 33.2 g/dL (33.2-36.2); MEAN CORPUSCULAR VOLUME 90.9 fL (81-97); MEAN PLATELET VOLUME 8.3 fL (7.4-10.4); MONOCYTES # (AUTO) 0.82 x10^3/uL (0.2-0.8); MONOCYTES % (AUTO) 6 % (2-9); NEUTROPHILS # (AUTO) 9.69 x10^3/uL (1.8-6.8); NEUTROPHILS % (AUTO) 74 % (42-75); PLATELET COUNT 237 x10^3/uL (130-400); RED BLOOD COUNT 4.82 x10^6/uL (4.38-5.82); RED CELL DISTRIBUTION WIDTH 14.4 % (9.4-14.8)
[2019-03-31 06:20] LABS: ALBUMIN 2.5 g/dL (3.4-5.0); ANION GAP 5 mmol/L (5-15); CALCIUM 8.3 mg/dL (8.5-10.1); CREATININE 0.88 mg/dL (0.7-1.3)
[2019-03-31 06:54] VITALS: BP 120/84
[2019-03-31] MEDS ORDERED: CALCIUM GLUCONATE 4.6 MEQ in SODIUM CHLORIDE 0.9% 50 ML IV ONE (08:00)
[2019-03-31] MEDS: AMLODIPINE 5 MG TABLET PO SCH (08:10)
[2019-03-31] MEDS: LISINOPRIL 20 MG TABLET PO SCH (08:10)
[2019-03-31] MEDS ORDERED: DOXY100C2 PO (12:03)
== END 2019-03-31 12:47 | disposition home or self-care (01) ==
LOC: ED 19:26 → 4EST 19:32 → INTOOBSV 19:32 → DCLOUNGE 03-31 12:44
PROVIDERS: ADMIT Emergency Medicine; ATTEND Family Medicine
DX: A41.9 Sepsis, unspecified organism (principal); J18.0 Bronchopneumonia, unspecified organism; B19.20 Unspecified viral hepatitis C without hepatic coma; F17.200 Nicotine dependence, unspecified, uncomplicated; I10 Essential (primary) hypertension; Z79.899 Other long term (current) drug therapy; Z88.8 Allergy status to other drugs, medicaments and biological substances; Z90.49 Acquired absence of other specified parts of digestive tract
CPT/HCPCS: 36415; 71045; 80048; 80053; 80069; 83605; 83735; 83880; 84145; 85025; 87040; 87400; 93005; 94640; 96360; 96365; 96366; 96367; 96375; 99291; G0378; J0456; J0610; J0696; J1885; J7030; J7050; J7620; 96361

== ENCOUNTER → 2019-07-10 | Outpatient (CLI) | payer MEDICAID ==
[~2019-07-10] MED LIST changes: +DOXY100C2 PO; +QUET25TA7 PO
== END | disposition home or self-care (01) ==
LOC: CFH 12:57
PROVIDERS: ATTEND Family Medicine
DX: M19.042 Primary osteoarthritis, left hand (principal); M19.041 Primary osteoarthritis, right hand; M79.89 Other specified soft tissue disorders
CPT/HCPCS: 72114

== ENCOUNTER 2019-12-30 21:26 | Inpatient (IN) | payer MEDICAID ==
[~2019-12-30] VITALS: Ht 167.6 cm; Wt 95.2 kg
--- NOTE | 2019-12-30 22:14 | NUR ---
PT IN BED, ATTACHED TO ALL MONITORS. ROOM AIR 88-91%. 3L O2 STARTED. NSR ON MONITOR. PT DENIES ANY PAIN OR CONCERNS. RT PAGED FOR CONTINUOUS NEB ORDERS. CALL LIGHT IN REACH.
[2019-12-30] MEDS ORDERED: ALBUTEROL 0.5%, 20ML ONE (22:21)
--- NOTE | 2019-12-30 22:23 | NUR ---
RESPIRATORY AT BEDSIDE.
[2019-12-30] MEDS ORDERED: ALBUTEROL SULFATE 2.5 MG/3 ML NPPB ONE (22:30)
[2019-12-30 23:06] LABS: ALANINE AMINOTRANSFERASE 31 U/L (12-78); ALBUMIN 2.9 g/dL (3.4-5.0); ANION GAP 4 mmol/L (5-15); CALCIUM 8.4 mg/dL (8.5-10.1); CHLORIDE 110 mmol/L (98-107); CREATININE 0.89 mg/dL (0.7-1.3)
[2019-12-30 23:08] LABS: ALKALINE PHOSPHATASE 115 U/L (45-117); BILIRUBIN,TOTAL 0.4 mg/dL (0.2-1.0); TOTAL PROTEIN 7.9 g/dL (6.4-8.2)
[2019-12-30 23:14] LABS: BASOPHILS % (AUTO) 1 % (0-1); EOSINOPHILS % (AUTO) 4 % (1-7); LYMPHOCYTES % (AUTO) 16 % (22-44); MEAN CORPUSCULAR HEMOGLOBIN 30.3 pg (27.5-34.5); MEAN CORPUSCULAR HGB CONC 33.9 g/dL (33.2-36.2); MEAN PLATELET VOLUME 7.4 fL (7.4-10.4); MONOCYTES % (AUTO) 11 % (2-9); NEUTROPHILS % (AUTO) 69 % (42-75); PLATELET COUNT 320 x10^3/uL (130-400); RED BLOOD COUNT 5.36 x10^6/uL (4.38-5.82); RED CELL DISTRIBUTION WIDTH 13.7 % (9.4-14.8)
[2019-12-30 23:47] LABS: MD SCAN
--- NOTE | 2019-12-31 00:05 | NUR ---
PT ABLE TO AMBULATE TO RESTROOM, STATES HE FEELS SHORT OF BREATH. PULSE OX BETWEEN 88-92% ON RA. PLACED ON 2L O2 FOR SUPPORT WHILE RESTING. MEDICATED PER MAY. PROVIDED WITH EXTRA WATER PER REQUEST. DENIES ANY FURTHER NEEDS OR CONCERNS AT THIS TIME. CALL LIGHT IN REACH.
--- NOTE | 2019-12-31 00:49 | NUR ---
Note lynette in EDM - 12/31/19 at 0051 by RHETT PT SLEEPING IN BED, O2 FOUND OFF, SATS 84%. PLACED ON 4L O2, 92%. PT DENIES ANY FURTHER NEEDS, CALL LIGHT IN REACH.
--- NOTE | 2019-12-31 00:51 | NUR ---
PT SLEEPING IN BED, O2 FOUND OFF, SATS 84%. PLACED ON 4L O2, 92%. PT DENIES ANY FURTHER NEEDS, CALL LIGHT IN REACH.
[2019-12-31] MEDS ORDERED: SODIUM CHLORIDE FLUSH 10ML SYR IVF PRN (01:30)
--- NOTE | 2019-12-31 01:31 | NUR ---
PT PROVIDED WITH MEAL PER REQUEST. DENIES ANY FURTHER NEEDS OR CONCERNS AT THIS TIME.
--- NOTE | 2019-12-31 01:52 | NUR ---
REPORT RECIEVED FROM KONRAD VOGEL.
[2019-12-31] MEDS ORDERED: DOCUSATE 100 MG CAPSULE PO PRN (02:00)
[2019-12-31] MEDS ORDERED: ACETAMINOPHEN 325 MG TABLET PO PRN (02:00)
[2019-12-31] MEDS ORDERED: ENALAPRILAT 1.25 MG/ML, 2ML IVPush PRN (02:00)
[2019-12-31] MEDS ORDERED: ALBUTEROL/IPRATROPIUM 2.5MG/0.5MG, 3 ML NEB SCH (02:00)
[2019-12-31] MEDS ORDERED: METHOCARBAMOL 500 MG TABLET PO PRN (02:00)
[2019-12-31] MEDS ORDERED: morphine SULFATE 10 MG/ML, 1ML IVPush PRN (02:00)
[2019-12-31] MEDS ORDERED: ONDANSETRON 2MG/ML, 2ML IVPush PRN (02:00)
[2019-12-31] MEDS ORDERED: ZOLPIDEM 5MG TABLET PO PRN (02:00)
[2019-12-31] MEDS ORDERED: ALBUTEROL/IPRATROPIUM 2.5MG/0.5MG, 3 ML ONE (02:27)
[2019-12-31] MEDS ORDERED: ENOXAPARIN 40 MG/0.4 ML ONE (02:27)
--- NOTE | 2019-12-31 02:27 | NUR ---
ATTEMPTED IV X2. PT UPSET AND STATED HE IS A VERY HARD STICK AND WANTS SOMEONE TO TRY AN ULTRASOUND ON HIM, AND ONLY BUTTERFLY IV'S WORK ON HIM.
--- NOTE | 2019-12-31 02:30 | NUR ---
PLACED 20G PIV TO LEFT HAND
[2019-12-31] MEDS ORDERED: NICOTINE 7 MG/24 HR PATCH.TD24 ONE (02:47)
--- NOTE | 2019-12-31 02:50 | NUR ---
SPOKE WITH HOSPITALIST AND HOSPITALIST STATES NO BLOOD CULTURES BEFORE ABX ADMIN.
[2019-12-31] MEDS: ENOXAPARIN 40 MG/0.4 ML SQ SCH (03:04)
[2019-12-31] MEDS: DOXYCYCLINE 100 MG in DEXTROSE 5% 250 ML IV SCH ×3 (03:05→18:00)
[2019-12-31] MEDS: NICOTINE 7 MG/24 HR PATCH.TD24 TD SCH (03:08)
--- NOTE | 2019-12-31 03:15 | NUR ---
PT RESTING IN [place], ABX RUNNING, PT SURRENTLY GETTING A BREATHING TREATMENT, AND AWAITING HOSP BED FROM HOUSEKEEPING.
--- NOTE | 2019-12-31 04:50 | NUR ---
PT AMBULATED TO RESTROOM AND GIVEN SPRITE PER REQUEST. NO OTHER NEEDS AT THIS TIME
--- NOTE | 2019-12-31 05:19 | NUR ---
REPORT GIVEN TO KONRAD PIZARRO.
[2019-12-31 05:42] VITALS: BP 142/90
[2019-12-31] MEDS: GUAIFENESIN/DM 200-20MG, 10ML UDC PO PRN ×2 (06:21→23:07)
[2019-12-31 07:56] VITALS: BP 139/84
[2019-12-31] MEDS ORDERED: FAMOTIDINE 40 MG TABLET ONE (08:53)
[2019-12-31] MEDS: AMLODIPINE 5 MG TABLET PO SCH (08:59)
[2019-12-31] MEDS: BENAZEPRIL 20 MG TABLET PO SCH (09:00)
[2019-12-31] MEDS: FAMOTIDINE 20 MG TABLET PO SCH ×2 (13:00→23:03)
[2019-12-31 13:59] VITALS: BP 159/90
[2019-12-31] MEDS ORDERED: ALBUTEROL HFA 90 MCG/SPRAY INH PRN (15:30)
[2019-12-31 20:44] VITALS: BP 129/96
[2020-01-01] MEDS: HYDROcodone/APAP 5/325 TABLET PO PRN ×2 (01:14→06:13)
[2020-01-01] MEDS: NICOTINE 7 MG/24 HR PATCH.TD24 TD SCH (01:14)
[2020-01-01] MEDS: ENOXAPARIN 40 MG/0.4 ML SQ SCH (01:15)
[2020-01-01 02:45] VITALS: BP 144/89
[2020-01-01 05:30] LABS: BASOPHILS % (AUTO) 0 % (0-1); EOSINOPHILS % (AUTO) 0 % (1-7); LYMPHOCYTES % (AUTO) 13 % (22-44); MEAN CORPUSCULAR HEMOGLOBIN 30.7 pg (27.5-34.5); MEAN CORPUSCULAR HGB CONC 33.5 g/dL (33.2-36.2); MEAN PLATELET VOLUME 7.5 fL (7.4-10.4); MONOCYTES % (AUTO) 10 % (2-9); NEUTROPHILS % (AUTO) 76 % (42-75); PLATELET COUNT 332 x10^3/uL (130-400); RED BLOOD COUNT 4.94 x10^6/uL (4.38-5.82); RED CELL DISTRIBUTION WIDTH 13.8 % (9.4-14.8)
[2020-01-01 05:32] LABS: CHLORIDE 111 mmol/L (98-107)
[2020-01-01 05:36] LABS: ANION GAP 3 mmol/L (5-15); CALCIUM 8.8 mg/dL (8.5-10.1)
[2020-01-01 05:42] LABS: MD NO
[2020-01-01] MEDS: GUAIFENESIN/DM 200-20MG, 10ML UDC PO PRN (06:12)
[2020-01-01] MEDS: DOXYCYCLINE 100 MG in DEXTROSE 5% 250 ML IV SCH ×2 (06:13→07:30)
[2020-01-01 06:53] VITALS: BP 133/86
[2020-01-01] MEDS ORDERED: PRED20TA PO (09:23)
[2020-01-01] MEDS ORDERED: DOXY100T23 PO (09:23)
[2020-01-01] MEDS: BENAZEPRIL 20 MG TABLET PO SCH (09:28)
[2020-01-01] MEDS: FAMOTIDINE 20 MG TABLET PO SCH (09:28)
[2020-01-01] MEDS: AMLODIPINE 5 MG TABLET PO SCH (09:29)
== END 2020-01-01 10:20 | disposition home or self-care (01) | DRG 871 ==
LOC: ED 23:54 → EDIP 12-31 01:24 → 4NW 12-31 05:32 → DCLOUNGE 01-01 10:12
PROVIDERS: ADMIT Internal Medicine; ATTEND Internal Medicine
DX: A41.9 Sepsis, unspecified organism (principal); J96.01 Acute respiratory failure with hypoxia; J44.1 Chronic obstructive pulmonary disease with (acute) exacerbation; F17.210 Nicotine dependence, cigarettes, uncomplicated; G89.29 Other chronic pain; I10 Essential (primary) hypertension; Z20.828 Contact with and (suspected) exposure to other viral communicable diseases; Z80.42 Family history of malignant neoplasm of prostate
CPT/HCPCS: 36415; J7613; 71045; 80048; 80053; 85025; 87635; 93005; 94644; G0378; J1650; J7060; J7512

== ENCOUNTER 2020-07-27 08:00 | Outpatient (CLI) | payer MEDICAID ==
[~2020-07-27] VITALS: Ht 167.6 cm; Wt 88.6 kg
[~2020-07-27 08:00] MED LIST changes: +DOXY100T23 PO; +HYDR-2214 PO; -HYDR-3240 PO; +PRED20TA PO
[2020-07-27 11:42] LABS: HCT (SEDRATE) 52.1 % (39.2-51.8)
[2020-07-27 11:43] LABS: BASOPHILS % (AUTO) 1 % (0-1); EOSINOPHILS % (AUTO) 3 % (1-7); LYMPHOCYTES % (AUTO) 24 % (22-44); MEAN CORPUSCULAR HEMOGLOBIN 31.3 pg (27.5-34.5); MEAN CORPUSCULAR HGB CONC 34.4 g/dL (33.2-36.2); MEAN PLATELET VOLUME 7.7 fL (7.4-10.4); MONOCYTES % (AUTO) 9 % (2-9); NEUTROPHILS % (AUTO) 63 % (42-75); PLATELET COUNT 312 x10^3/uL (130-400); RED BLOOD COUNT 5.65 x10^6/uL (4.38-5.82); RED CELL DISTRIBUTION WIDTH 14.8 % (9.4-14.8)
[2020-07-27 11:52] LABS: ALANINE AMINOTRANSFERASE 33 U/L (12-78); ALBUMIN 3.6 g/dL (3.4-5.0); ANION GAP 5 mmol/L (5-15); CALCIUM 8.8 mg/dL (8.5-10.1); CHLORIDE 109 mmol/L (98-107); CREATININE 1.02 mg/dL (0.7-1.3)
[2020-07-27 11:54] LABS: ALKALINE PHOSPHATASE 124 U/L (45-117); BILIRUBIN,TOTAL 0.4 mg/dL (0.2-1.0)
[2020-07-27 11:55] LABS: INTERNATIONAL NORMALIZED RATIO 0.98 (0.93-1.1); PROTHROMBIN TIME 10.5 Seconds (9.6-11.5)
== END 2020-07-27 23:59 | disposition home or self-care (01) ==
LOC: STAR 08:00 → EDSTATUS 07-30 10:00
PROVIDERS: ATTEND Orthopaedic Surgery Orthopaedic Surgery of the Spine
DX: Z01.818 Encounter for other preprocedural examination (principal); M50.20 Other cervical disc displacement, unspecified cervical region; T85.898A Other specified complication of other internal prosthetic devices, implants and grafts, initial encounter; R94.31 Abnormal electrocardiogram [ECG] [EKG]; R00.0 Tachycardia, unspecified; Y83.8 Other surgical procedures as the cause of abnormal reaction of the patient, or of later complication, without mention of misadventure at the time of the procedure; Y92.89 Other specified places as the place of occurrence of the external cause; Z20.822 Contact with and (suspected) exposure to COVID-19
CPT/HCPCS: 36415; 71046; 80053; 83036; 85025; 85610; 85651; 85730; 93005; U0003; U0005

== ENCOUNTER 2020-09-10 08:40 | Inpatient (IN) | payer MEDICAID ==
[2020-09-09 10:18] LABS: ALANINE AMINOTRANSFERASE 36 U/L (12-78); ALBUMIN 3.3 g/dL (3.4-5.0); ANION GAP 8 mmol/L (5-15); CHLORIDE 105 mmol/L (98-107); INTERNATIONAL NORMALIZED RATIO 1.02 (0.93-1.1); PROTHROMBIN TIME 10.9 Seconds (9.6-11.5)
[2020-09-09 10:21] LABS: ALKALINE PHOSPHATASE 112 U/L (45-117); BILIRUBIN,TOTAL 0.6 mg/dL (0.2-1.0); CREATININE 0.97 mg/dL (0.7-1.3); TOTAL PROTEIN 9.3 g/dL (6.4-8.2)
[2020-09-09 10:27] LABS: BASOPHILS % (AUTO) 1 % (0-1); EOSINOPHILS % (AUTO) 3 % (1-7); LYMPHOCYTES % (AUTO) 23 % (22-44); MEAN CORPUSCULAR HEMOGLOBIN 31.5 pg (27.5-34.5); MEAN CORPUSCULAR HGB CONC 34.7 g/dL (33.2-36.2); MEAN PLATELET VOLUME 8.4 fL (7.4-10.4); MONOCYTES % (AUTO) 8 % (2-9); NEUTROPHILS % (AUTO) 66 % (42-75); PLATELET COUNT 250 x10^3/uL (130-400); RED BLOOD COUNT 6.19 x10^6/uL (4.38-5.82); RED CELL DISTRIBUTION WIDTH 14.7 % (9.4-14.8)
[2020-09-09 11:03] LABS: HCT (SEDRATE) 56.2 % (39.2-51.8)
[~2020-09-10] VITALS: Ht 167.6 cm; Wt 95.4 kg
[2020-09-10] MEDS ORDERED: LACTATED RINGERS 1,000 ML IV SCH (09:30)
[2020-09-10] MEDS ORDERED: VANCOMYCIN 1,000 MG in SODIUM CHLORIDE 0.9% 100 ML IV ONE (09:30)
[2020-09-10] MEDS ORDERED: CHLORHEXIDINE 15 ML UDC PO ONE (09:30)
[2020-09-10] MEDS ORDERED: MIDAZOLAM 1 MG/ML, 2ML ONE (10:56)
[2020-09-10] MEDS ORDERED: FENTANYL PF 250 MCG/5ML ONE ×2 (10:56→15:32)
[2020-09-10] MEDS ORDERED: BUPIVACAINE/PF 0.5% ONE (12:09)
[2020-09-10] MEDS ORDERED: methylPREDNISolone *ACETATE* 40 MG/ML ONE (12:09)
[2020-09-10] MEDS ORDERED: EPINEPHRINE 1 MG/ML, 1ML ONE (12:09)
[2020-09-10] MEDS ORDERED: TRANEXAMIC ACID 100 MG/ML, 10ML ONE (12:09)
[2020-09-10] MEDS ORDERED: THROMBIN 20,000 UNIT VIAL TP ONE (12:09)
[2020-09-10] MEDS ORDERED: BUPIVACAINE/PF-EPI 0.5% 1:200K IM ONE (13:22)
[2020-09-10] MEDS ORDERED: MEPERIDINE/PF 25MG/0.5ML IVPush PRN (14:00)
[2020-09-10] MEDS ORDERED: ALBUTEROL SULFATE 2.5 MG/3 ML NPPB PRN ×2 (14:00→20:00)
[2020-09-10] MEDS ORDERED: DIAZEPAM 5 MG/ML, 2ML IV PRN ×2 (14:00)
[2020-09-10] MEDS ORDERED: KETOROLAC 30 MG/1 ML IV PRN (14:00)
[2020-09-10] MEDS ORDERED: HYDROmorphone 1 MG/ML, 1ML INJ IV PRN (14:00)
[2020-09-10] MEDS ORDERED: OXYcodone 5 MG/5 ML ORAL.SOL UDC PO PRN (14:00)
[2020-09-10] MEDS ORDERED: LABETALOL 5MG/ML, 20ML IV PRN ×2 (14:00→16:30)
[2020-09-10] MEDS ORDERED: PROMETHAZINE 25 MG/ML, 1ML IV PRN (14:00)
[2020-09-10] MEDS ORDERED: ONDANSETRON 2MG/ML, 2ML IVPush PRN (14:00)
[2020-09-10] MEDS ORDERED: METOCLOPRAMIDE 5 MG/ML, 2ML IV PRN (14:00)
[2020-09-10] MEDS ORDERED: hydrALAzine 20 MG/ML, 1ML IV PRN (14:00)
[2020-09-10] MEDS ORDERED: FENTANYL PF 100 MCG/2ML ONE ×2 (16:19→16:57)
[2020-09-10] MEDS ORDERED: DIPHENHYDRAMINE 50 MG/ML, 1ML IM PRN (16:30)
[2020-09-10] MEDS ORDERED: BISACODYL 10 MG SUPP PR PRN (16:30)
[2020-09-10] MEDS ORDERED: HYDROcodone/APAP 10/325 MG TABLET PO PRN (16:30)
[2020-09-10] MEDS ORDERED: PROMETHAZINE 25 MG/ML, 1ML IM PRN (16:30)
[2020-09-10] MEDS ORDERED: DIPHENHYDRAMINE 50 MG/ML, 1ML IVPush PRN (16:30)
[2020-09-10] MEDS ORDERED: ACETAMINOPHEN 500 MG TABLET PO PRN (16:30)
[2020-09-10] MEDS ORDERED: DIAZEPAM 5 MG TABLET PO PRN (16:30)
[2020-09-10] MEDS ORDERED: DIPHENHYDRAMINE 50 MG CAPSULE PO PRN (16:30)
[2020-09-10] MEDS ORDERED: DEXAMETHASONE 4 MG/ML, 5ML IVPush PRN (16:30)
[2020-09-10] MEDS ORDERED: morphine SULFATE 10 MG/ML, 1ML IVPush PRN (16:30)
[2020-09-10] MEDS ORDERED: SODIUM CHLORIDE 0.9% 1,000 ML IV PRN (16:30)
[2020-09-10] MEDS ORDERED: MAGNESIUM HYDROXIDE 8%, 30ML UDC PO PRN (16:30)
[2020-09-10] MEDS ORDERED: HYDROmorphone 2 MG/ML, 1ML IM PRN (16:30)
[2020-09-10] MEDS ORDERED: SENNA/DOCUSATE TABLET PO PRN (16:30)
[2020-09-10] MEDS ORDERED: LABETALOL 5MG/ML, 20ML IVPush PRN ×2 (16:30→20:30)
[2020-09-10] MEDS ORDERED: ONDANSETRON 2MG/ML, 2ML IV PRN (16:30)
[2020-09-10] MEDS ORDERED: KETOROLAC 30 MG/1 ML IVPush PRN (16:30)
[2020-09-10] MEDS ORDERED: HYDROcodone/APAP 7.5-325MG/15ML UDC ONE (16:35)
[2020-09-10] MEDS: FENTANYL PF 100 MCG/2ML IV PRN ×3 (16:50→17:10)
[2020-09-10] MEDS: METHOCARBAMOL 1,000 MG in DEXTROSE 5% 100 ML IV SCH (17:00)
[2020-09-10] MEDS ORDERED: KETOROLAC 30 MG/1 ML IVPush ONE (17:30)
[2020-09-10] MEDS ORDERED: DEXAMETHASONE 4 MG/ML, 1ML IVPush PRN (17:30)
[2020-09-10] MEDS ORDERED: HYDROcodone/APAP 7.5-325MG/15ML UDC PO PRN (17:30)
[2020-09-10] MEDS: HYDROmorphone 2MG TABLET PO PRN (19:20)
[2020-09-10] MEDS ORDERED: NICOTINE 21 MG/24 HR PATCH.TD24 TD SCH (20:15)
[2020-09-10] MEDS ORDERED: NICOTINE 21 MG/24 HR PATCH.TD24 ONE (20:16)
[2020-09-10] MEDS: NS + 20MEQ KCL 1,000 ML IV SCH (20:20)
[2020-09-10 20:21] VITALS: BP 130/85
[2020-09-10] MEDS: CEFAZOLIN PMX 1GM/50ML 50 ML IVPB SCH (20:21)
[2020-09-10] MEDS ORDERED: LORazepam 0.5MG TABLET PO PRN (20:30)
[2020-09-10] MEDS: HYDROcodone/APAP 5/325 TABLET PO PRN (21:58)
[2020-09-11 00:26] VITALS: BP 118/87
[2020-09-11] MEDS: METHOCARBAMOL 1,000 MG in DEXTROSE 5% 100 ML IV SCH ×2 (00:39→08:05)
[2020-09-11] MEDS: CEFAZOLIN PMX 1GM/50ML 50 ML IVPB SCH (03:03)
[2020-09-11] MEDS: HYDROcodone/APAP 5/325 TABLET PO PRN ×2 (03:12→09:19)
[2020-09-11 04:26] VITALS: BP 142/85
[2020-09-11] MEDS: HYDROmorphone 2MG TABLET PO PRN ×2 (04:32→05:46)
[2020-09-11 08:05] LABS: BASOPHILS % (AUTO) 0 % (0-1); EOSINOPHILS % (AUTO) 4 % (1-7); LYMPHOCYTES % (AUTO) 18 % (22-44); MEAN CORPUSCULAR HEMOGLOBIN 31.3 pg (27.5-34.5); MEAN CORPUSCULAR HGB CONC 34.1 g/dL (33.2-36.2); MONOCYTES % (AUTO) 8 % (2-9); NEUTROPHILS % (AUTO) 70 % (42-75); PLATELET COUNT 233 x10^3/uL (130-400); RED CELL DISTRIBUTION WIDTH 14.3 % (9.4-14.8)
[2020-09-11] MEDS: NS + 20MEQ KCL 1,000 ML IV SCH (08:05)
[2020-09-11 08:10] VITALS: BP 135/90
[2020-09-11] MEDS ORDERED: BENAZEPRIL 20 MG TABLET PO SCH (09:00)
[2020-09-11] MEDS ORDERED: AMLODIPINE 5 MG TABLET PO SCH (09:00)
[2020-09-11] MEDS ORDERED: HYDR-3248 PO (11:55)
[2020-09-12] MEDS ORDERED: METHOCARBAMOL 750 MG TABLET PO SCH (16:30)
[2020-09-15] MEDS ORDERED: DICLOFENAC SODIUM 75 MG TABLET.DR PO SCH (08:00)
== END 2020-09-11 12:30 | disposition home or self-care (01) | DRG 472 ==
LOC: ORIP 08:40 → 4NE 17:47
PROVIDERS: ADMIT Orthopaedic Surgery Orthopaedic Surgery of the Spine; ATTEND Orthopaedic Surgery Orthopaedic Surgery of the Spine
PROC: 0RB30ZZ Excision of Cervical Vertebral Disc, Open Approach (ICD-10-PCS; 2020-09-10)
PROC: 0RP104Z Removal of Internal Fixation Device from Cervical Vertebral Joint, Open Approach (ICD-10-PCS; 2020-09-10)
PROC: 4A11X4G Monitoring of Peripheral Nervous Electrical Activity, Intraoperative, External Approach (ICD-10-PCS; 2020-09-10)
PROC: 0RG10A0 Fusion of Cervical Vertebral Joint with Interbody Fusion Device, Anterior Approach, Anterior Column, Open Approach (ICD-10-PCS; principal; 2020-09-10 11:00)
DX: M48.02 Spinal stenosis, cervical region (principal); M50.01 Cervical disc disorder with myelopathy, high cervical region; M50.11 Cervical disc disorder with radiculopathy, high cervical region; Z20.822 Contact with and (suspected) exposure to COVID-19; Z88.6 Allergy status to analgesic agent
CPT/HCPCS: 36415; 71046; 72040; 76000; 80053; 83036; 85025; 85610; 85651; 85730; 93005; 94640; 95938; 95941; C1713; G0378; J0171; J0690; J1885; J2250; J3010; J3370; J3480; J7613; U0005; C1760; C1762; C1889; J1030; J2800; J7120; U0003

== ENCOUNTER 2020-09-14 21:12 | Emergency (ER) | payer MEDICAID ==
[~2020-09-14] VITALS: Ht 167.6 cm; Wt 88.4 kg
[~2020-09-14 21:12] MED LIST changes: +HYDR-3248 PO
[2020-09-14 21:17] VITALS: BP 140/94
--- NOTE | 2020-09-14 22:10 | NUR ---
burr picker note: No answer from lobby when pt called for room from triage.
--- NOTE | 2020-09-14 22:44 | NUR ---
code and test clerk note: No answer when pt called for room from triage.
--- NOTE | 2020-09-14 23:08 | NUR ---
piping drafter note: No answer from lobby when pt called for room from triage.
== END 2020-09-14 23:09 | disposition left against medical advice (07) ==
LOC: ED 21:45
DX: M54.2 Cervicalgia (principal); M25.511 Pain in right shoulder; Z53.21 Procedure and treatment not carried out due to patient leaving prior to being seen by health care provider